=== PATIENT | male | born 1995 | race Caucasian/White ===

== ENCOUNTER 2016-08-17 18:09 | Emergency (ER) | payer OTHER ==
[~2016-08-17] VITALS: Ht 177.8 cm; Wt 70.0 kg
[2016-08-17 18:10] VITALS: BP 123/78; PULSE 103; RESP 20; TEMP 97.7; O2SAT 97
[2016-08-17] MEDS ORDERED: CYCLOBENZAPRINE HCL 10 MG TAB PO ONE (22:45)
[2016-08-17] MEDS ORDERED: TETANUS/DIPHTHERIA TOXOID ADULT 0.5 ML VIAL IM ONE (22:45)
[2016-08-17] MEDS ORDERED: SODIUM CHLORIDE 0.9% FLUSH 10 ML FLUSH IVF PRN (22:45)
[2016-08-17] MEDS ORDERED: ACETAMINOPHEN/HYDROcodone 325 MG/5 MG TAB PO ONE (22:45)
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
[2016-08-17] MEDS ORDERED: CYCL1TAB29 PO (23:32)
[2016-08-17] MEDS ORDERED: DICL75TA PO (23:32)
== END 2016-08-18 00:13 | disposition home or self-care (01) ==
LOC: NEPD 18:09
DX: S16.1XXA Strain of muscle, fascia and tendon at neck level, initial encounter (principal); S09.90XA Unspecified injury of head, initial encounter; S50.811A Abrasion of right forearm, initial encounter; V23.4XXA Motorcycle driver injured in collision with car, pick-up truck or van in traffic accident, initial encounter; Z23 Encounter for immunization
CPT/HCPCS: 70450; 71020; 72125; 90471; 90714; 99285; L0150